=== PATIENT | male | born 1955 | race Caucasian/White ===

== ENCOUNTER 2020-01-18 07:38 | Outpatient (CLI) | payer BC, SELFPAY ==
--- NOTE | ~2020-01-18 | NM_ITS ---
NM hepatobiliary w pharm DATE: 01/18/2020 09:38 INDICATION: Acute pancreatitis TECHNIQUE: Serial images of the abdomen up to 16 minutes after intravenous injection of 2.7 mcg Kinev ac. 30 minute gallbladder ejection fraction calculation. COMPARISON: None FINDINGS: Bile duct and gallbladder activity are evident within 20 minutes of the injection. The 30 minute gallbladder ejection fraction measures 42%, within normal range. IMPRESSION: Normal examination Reviewed, dictated and finalized at [facility]. Reviewed, dictated and finalized at [facility]. IMPRESSION: Normal examination
== END 2020-01-18 07:39 | disposition home or self-care (01) ==
LOC: ANHIMG 07:41
PROVIDERS: PCP Internal Medicine; Visit Provider Internal Medicine
DX: K85.90 Acute pancreatitis without necrosis or infection, unspecified (principal)
CPT/HCPCS: 78227; A9537; J2805